=== PATIENT | female | born 1965 | race Caucasian/White ===

== ENCOUNTER → 2016-11-21 | Outpatient (CLI) | payer BC ==
--- NOTE | 2016-11-21 18:36 | WWHP ---
DATE OF DICTATION: 11/21/2016 CHIEF COMPLAINT: The patient is here for her routine gynecologic exam and mammogram. HISTORY OF PRESENT ILLNESS: This is a 51-year-old G0 with an LMP of 11/01/16. The patient is without gynecologic complaints. Her menses are regular every month. She denies hot flashes. PAST MEDICAL HISTORY: Chronic hypertension and mild gastritis. MEDICATIONS: 1. Aldomet b.i.d. 2. Topamax 1 b.i.d. ALLERGIES: AUGMENTIN, which caused hives. 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 SOCIAL HISTORY: She denies tobacco and drug use and has about 6 alcoholic drinks per year. She is and has been with her boyfriend since about 2005. She lives with him. She works at the [employer] in the [employer] in [place]. FAMILY HISTORY: Both parents have hypertension and diabetes. Mother had polycystic ovarian syndrome and now has osteoporosis. REVIEW OF SYSTEMS: She has gained about 12 pounds over the last 3 years. She denies respiratory, cardiac or GI problems. PHYSICAL EXAM: Blood pressure 135/86. Height 5 feet 5 inches. Weight 138 pounds. Temperature 98.6, pulse 61. This is a well-developed, well-nourished white female who is alert and oriented x3, in no acute distress. HEENT is within normal limits. NECK: Supple without mass or thyromegaly. CHEST AND LUNGS: Clear to auscultation. HEART: Regular rate and rhythm. Breasts are without mass or discharge. Axillary exam is negative for adenopathy. BACK: Negative for CVA tenderness. ABDOMEN: Soft, nontender, without palpable masses. PELVIC EXAM: External genitalia reveal mild atrophy without lesions. Cervix and vagina appear normal. There is no evidence of prolapse. The uterus is mid to anterior in position, nongravid size and nontender. There are no palpable adnexal masses or tenderness. Rectovaginal exam is negative for mass or tenderness and is negative for occult blood. EXTREMITIES: Nontender. IMPRESSION: 1. A 51-year-old female with normal gynecologic exam. 2. Pre-menopausal female. PLAN: 1. Pap smear was performed. 2. Self breast examination was discussed. 3. Mammogram will be done today. 4. Screening colonoscopy was recommended, and Dr. Louis's card was given to the patient for this. 5. Osteoporosis prevention was discussed. 6. I have recommended that she keep a menstrual calendar and call if she is having significant problems. 7. She will return in one year.
--- NOTE | 2016-11-22 11:10 | MM ---
Reason for exam: screening (asymptomatic). Last mammogram was performed 2 years and 2 months ago. History: Patient is nulliparous. Physical Findings: A clinical breast exam by your physician is recommended on an annual basis and results should be correlated with mammographic findings. MG 3D Screening Mammo W/Cad Bilateral CC and MLO view(s) were taken. Prior study comparison: September 29, 2014, bilateral MG screening mammo w CAD. September 16, 2013, bilateral digital screening mammo w/CAD. July 23, 2012, bilateral digital screening mammo w/CAD. The breast tissue is extremely dense which could obscure a lesion on mammography. Finding: There are few typically benign round calcifications in both breasts. There is no discrete abnormality. ASSESSMENT: Negative, BI-RAD 1 RECOMMENDATION: Routine screening mammogram of both breasts in 1 year.
== END | disposition home or self-care (01) ==
LOC: WWCWWP 08:42
PROVIDERS: ATTEND Obstetrics & Gynecology
DX: Z12.31 Encounter for screening mammogram for malignant neoplasm of breast (principal)
CPT/HCPCS: 77063; G0202

== ENCOUNTER → 2018-09-10 | Outpatient (CLI) | payer BC ==
[2018-09-10 15:31] VITALS: BP 142/89; PULSE 68; RESP 18; TEMP 97.5; BMI 23.1
--- NOTE | 2018-09-10 16:13 | P.HPOB ---
History of Present Illness H&P Date: 09/10/18 Chief Complaint: The patient is here for her routine gynecologic exam and mammogram. This is a 53-year-old G0 with an LMP of 09/02/2019. The patient thinks she is starting into a menopausal change. Her menstrual periods seem to be shorter, but can spot for a couple of days after the menstrual flow. She also has been experiencing occasional hot flashes which are not very severe. Review of Systems The patient's weight has been stable over the last year. She denies respiratory , cardiac, or G.I. problems. Past Medical History Past Medical History: No Reported History, Hypertension Additional Past Medical History / Comment(s): Mild gastritis. 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 She had a long history of infertility and has declined contraception. History of Any Multi-Drug Resistant Organisms: None Reported Additional Past Surgical History / Comment(s): x2 laparoscopy. Upper endoscopy 2009. Colonoscopy 2018(1st-next 5yrs) Past Anesthesia/Blood Transfusion Reactions: No Reported Reaction Past Psychological History: No Psychological Hx Reported Smoking Status: Never smoker Past Alcohol Use History: Rare (7 per year) Past Drug Use History: None Reported Additional History: She has been since 2018 and this is her 2nd marriage. They have been together since 2006. 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 - Past Family History Father Family Medical History: Hypertension Mother Additional Family Medical History / Comment(s): PCOS and osteoporosis. Medications and Allergies Home Medications Medication Instructions Recorded Confirmed Type Methyldopa [Aldomet] 250 mg PO BID 09/10/18 09/10/18 History Topiramate [Topamax] 25 mg PO DAILY 09/10/18 09/10/18 History Allergies Allergy/AdvReac Type Severity Reaction Status Date / Time amoxicillin [From Augmentin] Allergy Rash/Hives Verified 09/10/18 15:33 clavulanic acid Allergy Rash/Hives Verified 09/10/18 15:33 [From Augmentin] Exam Vital Signs Temp Pulse Resp BP Pulse Ox 09/10/18 15:22 97.5 F L 68 18 142/89 98 Intake and Output 09/10/18 09/10/18 09/10/18 06:59 14:59 22:59 Other: Weight 63.049 kg Height 5'5", weight 139 pounds, BMI 23.1. This is a well-developed well-nourished white female who is alert and oriented times 3 in no acute distress. HEENT: Within normal limits. NECK: Supple without mass or thyromegaly. CHEST AND LUNGS: Clear to auscultation. HEART: Regular rate and rhythm. BREASTS: Are without mass or discharge. AXILLARY EXAM: Negative for adenopathy. BACK: Negative for CVA tenderness. ABDOMEN: Soft, nontender, without palpable masses. PELVIC EXAM: Normal external genitalia. Cervix and vagina appear normal. There is a small amount of menstrual blood in the back of the vagina. There is no unusual discharge. There is no evidence of prolapse. The uterus is midposition , nongravid size and nontender. There are no palpable adnexal masses or tenderness. RECTAL EXAM: rectovaginal exam is negative for mass or tenderness and is negative for occult blood. EXTREMITIES: Nontender. IMPRESSION: 1. 53-year-old perimenopausal female with slight menstrual irregularity and occasional vasomotor symptoms. 2. Normal gynecologic exam. 3. History of infertility, declining any type of contraception. 4. Family history of osteoporosis in her mother. PLAN: 1. Pap smear was deferred since she had a normal one less than 2 years ago. 2. Self breast awareness was discussed with the patient. 3. Screening mammogram will be done today. 4. Osteoporosis prevention was discussed. I have stressed the importance of adequate calcium, vitamin D and regular exercise. Recommended amounts of calcium and vitamin D were also discussed. Due to her mother's history of osteoporosis, we will plan on doing her 1st bone density test at approximately age 56 if she is menopausal. 5. She will return in one year.
--- NOTE | 2018-09-15 12:14 | MM ---
Reason for exam: screening (asymptomatic). Last mammogram was performed 1 year and 10 months ago. History: Patient is nulliparous. MG 3D Screening Mammo W/Cad Bilateral CC and MLO view(s) were taken. Prior study comparison: November 21, 2016, bilateral MG 3d screening mammo w/cad. September 29, 2014, bilateral MG screening mammo w CAD. The breast tissue is extremely dense which could obscure a lesion on mammography. There is a benign-appearing round calcification in the left breast. No discrete abnormality. ASSESSMENT: Negative, BI-RAD 1 RECOMMENDATION: Routine screening mammogram of both breasts in 1 year.
== END ==
LOC: WWCWWP 15:12
PROVIDERS: ATTEND Obstetrics & Gynecology
DX: Z12.31 Encounter for screening mammogram for malignant neoplasm of breast (principal)
CPT/HCPCS: 77063; 77067

== ENCOUNTER 2019-01-29 11:50 | Observation (INO) | payer BC ==
[2019-01-29] MEDS ORDERED: SODIUM CHLORIDE 0.9% 500 ML 500 ML IV STA (12:12)
[2019-01-29] MEDS ORDERED: ASPIRIN 81 MG PO STA (12:12)
--- NOTE | 2019-01-29 12:19 | ED ---
General Adult HPI <Benny Folye - Last Filed: 01/29/19 14:27> - General Source: RN notes reviewed <Mahendra Thacker - Last Filed: 01/29/19 14:34> - General Stated complaint: Chest pressure Time Seen by Provider: 01/29/19 12:03 - History of Present Illness Initial comments: 53-year-old female with a past medical history of hypertension presents to the emergency department for a chief complaint of chest pressure times 2 hours. Patient states she woke up with a slight headache today. States she has a history of migraines. States that about 2 hours later started to have some chest pressure. States she was at work and felt like there was an elephant on her chest. States she did not feel specifically short of breath but felt like she could not take a deep breath. Denies any pleuritic chest pain. Patient denies any radiating pain. Does admit that she traveled about 3 hours away to [place] this weekend. Denies any calf pain. Patient denies hypercholesterolemia but does admit to hypertension for which he takes medication. Patient states her brother after a quadruple bypass before the age of 50.Patient has no other complaints at this time including shortness of breath, abdominal pain, nausea or vomiting, headache, or visual changes. (Mahendra Thacker) - Related Data Home Medications Medication Instructions Recorded Confirmed Methyldopa [Aldomet] 250 mg PO BID 09/10/18 01/29/19 Topiramate [Topamax] 25 mg PO DAILY 09/10/18 01/29/19 Allergies Allergy/AdvReac Type Severity Reaction Status Date / Time amoxicillin [From Augmentin] Allergy Rash/Hives Verified 01/29/19 12:46 clavulanic acid Allergy Rash/Hives Verified 01/29/19 12:46 [From Augmentin] Review of Systems ROS Other: All systems not noted in ROS Statement are negative. <Benny Foley - Last Filed: 01/29/19 14:27> ROS Other: All systems not noted in ROS Statement are negative. <Mahendra Thacker - Last Filed: 01/29/19 14:34> ROS Statement: Those systems with pertinent positive or pertinent negative responses have been documented in the HPI. Past Medical History Past Medical History: No Reported History, Hypertension Additional Past Medical History / Comment(s): Mild gastritis. 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 She had a long history of infertility and has declined contraception. History of Any Multi-Drug Resistant Organisms: None Reported Additional Past Surgical History / Comment(s): x2 laparoscopy. Upper endoscopy 2010. Colonoscopy 2018(1st-next 5yrs) Past Anesthesia/Blood Transfusion Reactions: No Reported Reaction Past Psychological History: No Psychological Hx Reported Smoking Status: Never smoker Past Alcohol Use History: Rare (7 per year) Past Drug Use History: None Reported - Past Family History Father Family Medical History: Hypertension Mother Additional Family Medical History / Comment(s): PCOS and osteoporosis. <Mahendra Thacker - Last Filed: 01/29/19 14:34> General Exam General appearance: alert, in no apparent distress Head exam: Present: atraumatic, normocephalic, normal inspection Eye exam: Present: normal appearance, PERRL, EOMI. Absent: scleral icterus, conjunctival injection, periorbital swelling ENT exam: Present: normal exam, mucous membranes moist Neck exam: Present: normal inspection, full ROM. Absent: tenderness, meningismus, lymphadenopathy Respiratory exam: Present: normal lung sounds bilaterally. Absent: respiratory distress, wheezes, rales, rhonchi, stridor Cardiovascular Exam: Present: regular rate, normal rhythm, normal heart sounds. Absent: systolic murmur, diastolic murmur, rubs, gallop, clicks GI/Abdominal exam: Present: soft, normal bowel sounds. Absent: distended, tenderness, guarding, rebound, rigid Neurological exam: Present: alert, oriented X3, CN II-XII intact Psychiatric exam: Present: normal affect, normal mood <Mahendra Thacker - Last Filed: 01/29/19 14:34> Course <Benny Foley - Last Filed: 01/29/19 14:27> Vital Signs 01/29/19 01/29/19 12:12 12:49 Temperature 98.2 F Pulse Rate 66 Respiratory 18 Rate Blood Pressure 176/123 153/108 O2 Sat by Pulse 98 Oximetry - Reevaluation(s) Reevaluation #1: 01/29/19 14:27 Case was discussed with practitioner Deanna. Case was also discussed with Dr. Dominique who will admit his patient. Chart was reviewed lab and x-ray reports (Benny Foley) EKG Findings - EKG Comments: EKG Findings:: Normal sinus rhythm, ventricular rate 72, MD interval 134, QTc 451, no evidence of ST elevation <Mahendra Thacker - Last Filed: 01/29/19 14:34> Medical Decision Making - Lab Data Result diagrams: 01/29/19 12:36 01/29/19 12:36 <Benny Foley - Last Filed: 01/29/19 14:27> - Lab Data Result diagrams: 01/29/19 12:36 01/29/19 12:36 <Mahendra Thacker - Last Filed: 01/29/19 14:34> - Medical Decision Making 53-year-old female with a past medical history of hypercholesterolemia presents to the emergency department for a chief complaint of chest pressure [address] feels that she can't get a deep breath at times. States it felt like an elephant was on her chest. Patient initially hypertensive here in the emergency department however this did improve throughout her stay. Exam is unremarkable. Patient is pleasant. CBC CMP unremarkable. Troponin is negative at the initial two-hour norma. D-dimer negative. However patient does have a significant family history with a brother due to an [facility] in his 40s. Therefore patient will be admitted for serial troponins and cardiology consultation. (Mahendra Thacker) - Lab Data Lab Results 01/29/19 01/29/19 01/29/19 Range/Units 12:36 12:36 12:36 WBC 6.0 (3.8-10.6) k/uL RBC 4.77 (3.80-5.40) m/uL Hgb 13.5 (11.4-16.0) gm/dL Hct 41.3 (34.0-46.0) % MCV 86.6 (80.0-100.0) fL MCH 28.2 (25.0-35.0) pg MCHC 32.6 (31.0-37.0) g/dL RDW 13.7 (11.5-15.5) % Plt Count 227 (150-450) k/uL Neutrophils % 68 % Lymphocytes % 23 % Monocytes % 5 % Eosinophils % 2 % Basophils % 1 % Neutrophils # 4.1 (1.3-7.7) k/uL Lymphocytes # 1.4 (1.0-4.8) k/uL Monocytes # 0.3 (0-1.0) k/uL Eosinophils # 0.1 (0-0.7) k/uL Basophils # 0.0 (0-0.2) k/uL PT 10.0 (9.0-12.0) sec INR 0.9 (<1.2) APTT 23.9 (22.0-30.0) sec D-Dimer <0.17 (<0.60) mg/L FEU Sodium 139 (137-145) mmol/L Potassium 4.3 (3.5-5.1) mmol/L Chloride 109 H (98-107) mmol/L Carbon Dioxide 23 (22-30) mmol/L Anion Gap 7 mmol/L BUN 14 (7-17) mg/dL Creatinine 0.80 (0.52-1.04) mg/dL Est GFR (CKD-EPI)AfAm >90 (>60 ml/min/1.73 sqM) Est GFR (CKD-EPI)NonAf 85 (>60 ml/min/1.73 sqM) Glucose 96 (74-99) mg/dL Calcium 8.7 (8.4-10.2) mg/dL Magnesium 2.1 (1.6-2.3) mg/dL Total Bilirubin 0.3 (0.2-1.3) mg/dL AST 15 (14-36) U/L ALT 13 (9-52) U/L Alkaline Phosphatase 48 (38-126) U/L Troponin I (0.000-0.034) ng/mL NT-Pro-B Natriuret Pep pg/mL Total Protein 6.7 (6.3-8.2) g/dL Albumin 3.9 (3.5-5.0) g/dL Amylase 67 (30-110) U/L Lipase 142 (23-300) U/L Urine Color Urine Appearance (Clear) Urine pH (5.0-8.0) Ur Specific [place] (1.001-1.035) Urine Protein (Negative) Urine Glucose (UA) (Negative) Urine Ketones (Negative) Urine Blood (Negative) Urine Nitrite (Negative) Urine Bilirubin (Negative) Urine Urobilinogen (<2.0) mg/dL Ur Leukocyte Esterase (Negative) Urine HCG, Qual (Not Detectd) 01/29/19 01/29/19 01/29/19 Range/Units 12:36 12:36 12:36 WBC (3.8-10.6) k/uL RBC (3.80-5.40) m/uL Hgb (11.4-16.0) gm/dL Hct (34.0-46.0) % MCV (80.0-100.0) fL MCH (25.0-35.0) pg MCHC (31.0-37.0) g/dL RDW (11.5-15.5) % Plt Count (150-450) k/uL Neutrophils % % Lymphocytes % % Monocytes % % Eosinophils % % Basophils % % Neutrophils # (1.3-7.7) k/uL Lymphocytes # (1.0-4.8) k/uL Monocytes # (0-1.0) k/uL Eosinophils # (0-0.7) k/uL Basophils # (0-0.2) k/uL PT (9.0-12.0) sec INR (<1.2) APTT (22.0-30.0) sec D-Dimer (<0.60) mg/L FEU Sodium (137-145) mmol/L Potassium (3.5-5.1) mmol/L Chloride (98-107) mmol/L Carbon Dioxide (22-30) mmol/L Anion Gap mmol/L BUN (7-17) mg/dL Creatinine (0.52-1.04) mg/dL Est GFR (CKD-EPI)AfAm (>60 ml/min/1.73 sqM) Est GFR (CKD-EPI)NonAf (>60 ml/min/1.73 sqM) Glucose (74-99) mg/dL Calcium (8.4-10.2) mg/dL Magnesium (1.6-2.3) mg/dL Total Bilirubin (0.2-1.3) mg/dL AST (14-36) U/L ALT (9-52) U/L Alkaline Phosphatase (38-126) U/L Troponin I <0.012 (0.000-0.034) ng/mL NT-Pro-B Natriuret Pep 63 pg/mL Total Protein (6.3-8.2) g/dL Albumin (3.5-5.0) g/dL Amylase (30-110) U/L Lipase (23-300) U/L Urine Color Urine Appearance (Clear) Urine pH (5.0-8.0) Ur Specific [place] (1.001-1.035) Urine Protein (Negative) Urine Glucose (UA) (Negative) Urine Ketones (Negative) Urine Blood (Negative) Urine Nitrite (Negative) Urine Bilirubin (Negative) Urine Urobilinogen (<2.0) mg/dL Ur Leukocyte Esterase (Negative) Urine HCG, Qual Not Detected (Not Detectd) 01/29/19 Range/Units 12:36 WBC (3.8-10.6) k/uL RBC (3.80-5.40) m/uL Hgb (11.4-16.0) gm/dL Hct (34.0-46.0) % MCV (80.0-100.0) fL MCH (25.0-35.0) pg MCHC (31.0-37.0) g/dL RDW (11.5-15.5) % Plt Count (150-450) k/uL Neutrophils % % Lymphocytes % % Monocytes % % Eosinophils % % Basophils % % Neutrophils # (1.3-7.7) k/uL Lymphocytes # (1.0-4.8) k/uL Monocytes # (0-1.0) k/uL Eosinophils # (0-0.7) k/uL Basophils # (0-0.2) k/uL PT (9.0-12.0) sec INR (<1.2) APTT (22.0-30.0) sec D-Dimer (<0.60) mg/L FEU Sodium (137-145) mmol/L Potassium (3.5-5.1) mmol/L Chloride (98-107) mmol/L Carbon Dioxide (22-30) mmol/L Anion Gap mmol/L BUN (7-17) mg/dL Creatinine (0.52-1.04) mg/dL Est GFR (CKD-EPI)AfAm (>60 ml/min/1.73 sqM) Est GFR (CKD-EPI)NonAf (>60 ml/min/1.73 sqM) Glucose (74-99) mg/dL Calcium (8.4-10.2) mg/dL Magnesium (1.6-2.3) mg/dL Total Bilirubin (0.2-1.3) mg/dL AST (14-36) U/L ALT (9-52) U/L Alkaline Phosphatase (38-126) U/L Troponin I (0.000-0.034) ng/mL NT-Pro-B Natriuret Pep pg/mL Total Protein (6.3-8.2) g/dL Albumin (3.5-5.0) g/dL Amylase (30-110) U/L Lipase (23-300) U/L Urine Color Light Yellow Urine Appearance Clear (Clear) Urine pH 6.5 (5.0-8.0) Ur Specific [place] 1.009 (1.001-1.035) Urine Protein Negative (Negative) Urine Glucose (UA) Negative (Negative) Urine Ketones Negative (Negative) Urine Blood Negative (Negative) Urine Nitrite Negative (Negative) Urine Bilirubin Negative (Negative) Urine Urobilinogen <2.0 (<2.0) mg/dL Ur Leukocyte Esterase Negative (Negative) Urine HCG, Qual (Not Detectd) Disposition <Benny Foley - Last Filed: 01/29/19 14:27> Is patient prescribed a controlled substance at d/c from ED?: No Time of Disposition: 14:34 <Mahendra Thacker - Last Filed: 01/29/19 14:34> Clinical Impression: Chest pressure Disposition: ADMITTED IP TO THIS HOSP Condition: Fair Referrals: Duane Dominique DO [Primary Care Provider] - 1-2 days
[2019-01-29 12:54] LABS: Basophils % (A) 1 %; Eosinophils # (A) 0.1 k/uL (0-0.7); Eosinophils % (A) 2 %; HCT 41.3 % (34.0-46.0); HGB 13.5 gm/dL (11.4-16.0); Lymphocytes # (A) 1.4 k/uL (1.0-4.8); Lymphocytes % (A) 23 %; MCH 28.2 pg (25.0-35.0); MCHC 32.6 g/dL (31.0-37.0); MCV 86.6 fL (80.0-100.0); Mean Platelet Volume 7.7; Monocytes # (A) 0.3 k/uL (0-1.0); Monocytes % (A) 5 %; Neutrophils # (A) 4.1 k/uL (1.3-7.7); Neutrophils % (A) 68 %; Platelet Count 227 k/uL (150-450); RBC 4.77 m/uL (3.80-5.40); RDW 13.7 % (11.5-15.5)
[2019-01-29 13:07] LABS: ALT 13 U/L (9-52); AST 15 U/L (14-36); Albumin 3.9 g/dL (3.5-5.0); Alkaline Phosphatase 48 U/L (38-126); Amylase 67 U/L (30-110); Anion Gap 7 mmol/L; Blood Urea Nitrogen 14 mg/dL (7-17); Calcium 8.7 mg/dL (8.4-10.2); Carbon Dioxide 23 mmol/L (22-30); Chloride 109 mmol/L (98-107); D-Dimer <0.17 mg/L FEU (<0.60); Glucose 96 mg/dL (74-99); INR 0.9 (<1.2); Lipase 142 U/L (23-300); Magnesium 2.1 mg/dL (1.6-2.3); Partial Thromboplastin Time 23.9 sec (22.0-30.0); Potassium 4.3 mmol/L (3.5-5.1); Sodium 139 mmol/L (137-145); Total Bilirubin 0.3 mg/dL (0.2-1.3); Total Protein 6.7 g/dL (6.3-8.2)
[2019-01-29 13:42] LABS: Appearance,Urine Clear (Clear); Bilirubin,Urine Negative (Negative); Blood,Urine Negative (Negative); Color,Urine Light Yellow; Glucose,Urine (UA) Negative (Negative); Ketones,Urine Negative (Negative); Leukocyte Esterase,Urine Negative (Negative); Nitrite,Urine Negative (Negative); PH, Urine 6.5 (5.0-8.0); Protein,Urine Negative (Negative); Specific Gravity,Urine 1.009 (1.001-1.035); Urobilinogen,Urine <2.0 mg/dL (<2.0)
--- NOTE | 2019-01-29 13:47 | XR ---
EXAMINATION TYPE: XR chest 2V DATE OF EXAM: 01/29/2019 COMPARISON: None HISTORY: Chest pain TECHNIQUE: Frontal and lateral views of the chest are obtained. FINDINGS: There is no focal air space opacity, pleural effusion, or pneumothorax seen. The cardiac silhouette size is within normal limits. There are overlying cardiac leads. The osseous structures a re intact. IMPRESSION: No acute cardiopulmonary process.
[2019-01-29] MEDS ORDERED: NITROGLYCERIN SL TABS 0.4 MG TAB SUBLINGUAL PRN (14:34)
[2019-01-29] MEDS ORDERED: TOPIRAMATE 25 MG TAB PO SCH (22:15)
[2019-01-29] MEDS ORDERED: METHYLDOPA 250 MG TAB PO SCH (22:15)
[2019-01-29] MEDS: METHYLDOPA 250 MG TAB PO SCH (22:35)
[2019-01-30 05:27] LABS: Cholesterol 164 mg/dL (<200); HDL Cholesterol 58 mg/dL (40-60); LDL Cholesterol,Calculated 95 mg/dL (0-99); Triglycerides 56 mg/dL (<150)
--- NOTE | 2019-01-30 07:34 | P.CRDCN ---
History of Present Illness Consult date: 01/30/19 Chief complaint: Chest pain History of present illness: This is a 53-year-old female patient with a past medical history significant for hypertension and history of migraine seems to be in good control presented to the emergency room complaining of chest discomfort. She was in her usual state of health yesterday when she started experiencing discomfort, in the mid of the chest, as a sharp kind of discomfort, without any radiation to the arm or neck or shoulders and without any associated symptoms of shortness of breath, sweating, dizziness, heart racing, or syncope. The EKG showed sinus rhythm without any ischemic ST or T-wave abnormalities. 3 sets of cardiac enzymes were checked and came in to be unremarkable. The chest x-ray did not show any acute abnormalities. The rest of the blood work including her CBC and BMP came in to be unremarkable. The d-dimer came in to be normal as well. The patient does not have any risk factors for CAD beside hypertension but she does have very significant family history of coronary artery disease with a brother in the 40s with CAD as well as mother. Past Medical History Past Medical History: Hypertension Additional Past Medical History / Comment(s): Mild gastritis, migraines History of Any Multi-Drug Resistant Organisms: None Reported Additional Past Surgical History / Comment(s): x2 laparoscopy. Upper endoscopy 2009. Colonoscopy 2018(1st-next 5yrs). lyn Past Anesthesia/Blood Transfusion Reactions: Postoperative Nausea & Vomiting (PONV) Past Psychological History: No Psychological Hx Reported Smoking Status: Never smoker Past Alcohol Use History: Rare Past Drug Use History: None Reported - Past Family History Father Family Medical History: Coronary Artery Disease (CAD), Hypertension Additional Family Medical History / Comment(s): passed from cardiac related issue Mother Family Medical History: Diabetes Mellitus Additional Family Medical History / Comment(s): PCOS and osteoporosis., MVP, aor tic stenosis Brother(s) Family Medical History: Diabetes Mellitus, Hypertension, Myocardial Infarction ([place]) Sister(s) Family Medical History: CVA/TIA Additional Family Medical History / Comment(s): possible TIA Medications and Allergies Home Medications Medication Instructions Recorded Confirmed Type Methyldopa [Aldomet] 250 mg PO BID 09/10/18 01/29/19 History Topiramate [Topamax] 25 mg PO DAILY 09/10/18 01/29/19 History Allergies Allergy/AdvReac Type Severity Reaction Status Date / Time amoxicillin [From Augmentin] Allergy Rash/Hives Verified 01/29/19 20:32 clavulanic acid Allergy Rash/Hives Verified 01/29/19 20:32 [From Augmentin] Physical Exam Vitals: Vital Signs Temp Pulse Pulse Pulse Resp BP BP 01/30/19 04:00 98.0 F 67 15 132/78 01/30/19 03:02 16 01/30/19 00:00 98.3 F 63 16 130/84 01/29/19 20:00 16 01/29/19 19:45 98.3 F 73 16 140/82 01/29/19 16:20 75 129/84 01/29/19 16:10 72 127/86 01/29/19 16:00 128/95 01/29/19 15:20 66 126/76 01/29/19 15:10 64 18 135/90 01/29/19 14:50 65 17 137/84 01/29/19 14:46 66 18 137/84 01/29/19 14:40 66 18 143/96 01/29/19 14:20 67 18 145/92 01/29/19 14:10 73 17 136/92 01/29/19 13:50 62 19 158/97 01/29/19 13:20 61 16 148/93 01/29/19 13:10 61 18 156/92 01/29/19 13:00 66 19 147/94 01/29/19 12:49 153/108 01/29/19 12:12 98.2 F 66 18 176/123 Pulse Ox 01/30/19 04:00 98 01/30/19 03:02 01/30/19 00:00 97 01/29/19 20:00 01/29/19 19:45 98 01/29/19 16:20 97 01/29/19 16:10 96 01/29/19 16:00 96 01/29/19 15:20 97 01/29/19 15:10 97 01/29/19 14:50 98 01/29/19 14:46 98 01/29/19 14:40 99 01/29/19 14:20 98 01/29/19 14:10 98 01/29/19 13:50 100 01/29/19 13:20 98 01/29/19 13:10 98 01/29/19 13:00 97 01/29/19 12:49 01/29/19 12:12 98 Intake and Output 01/29/19 01/30/19 01/30/19 22:59 06:59 14:59 Other: Voiding Method Toilet Toilet # Voids 1 - Constitutional General appearance: no acute distress - Respiratory Respiratory: bilateral: CTA - Cardiovascular Rhythm: regular Heart sounds: normal: S1, S2 Results 01/29/19 12:36 01/29/19 12:36 Cardiac Enzymes 01/29/19 01/29/19 01/29/19 Range/Units 12:36 12:36 18:13 AST 15 (14-36) U/L Troponin I <0.012 <0.012 (0.000-0.034) ng/mL 01/30/19 Range/Units 00:19 AST (14-36) U/L Troponin I <0.012 (0.000-0.034) ng/mL Coagulation 01/29/19 Range/Units 12:36 PT 10.0 (9.0-12.0) sec APTT 23.9 (22.0-30.0) sec Lipids 01/29/19 Range/Units 12:36 Triglycerides 56 (<150) mg/dL Cholesterol 164 (<200) mg/dL HDL Cholesterol 58 (40-60) mg/dL CBC 01/29/19 Range/Units 12:36 WBC 6.0 (3.8-10.6) k/uL RBC 4.77 (3.80-5.40) m/uL Hgb 13.5 (11.4-16.0) gm/dL Hct 41.3 (34.0-46.0) % Plt Count 227 (150-450) k/uL Comprehensive Metabolic Panel 01/29/19 Range/Units 12:36 Sodium 139 (137-145) mmol/L Potassium 4.3 (3.5-5.1) mmol/L Chloride 109 H (98-107) mmol/L Carbon Dioxide 23 (22-30) mmol/L BUN 14 (7-17) mg/dL Creatinine 0.80 (0.52-1.04) mg/dL Glucose 96 (74-99) mg/dL Calcium 8.7 (8.4-10.2) mg/dL AST 15 (14-36) U/L ALT 13 (9-52) U/L Alkaline Phosphatase 48 (38-126) U/L Total Protein 6.7 (6.3-8.2) g/dL Albumin 3.9 (3.5-5.0) g/dL Current Medications Generic Name Dose Route Start Last Admin Trade Name Freq PRN Reason Stop Dose Admin Aspirin 325 mg 01/30/19 09:00 Aspirin PO DAILY JUNIOR Nitroglycerin 0.4 mg 01/29/19 14:34 Nitrostat SUBLINGUAL Q5M PRN Chest Pain Methyldopa 250 Mg 1 each 01/29/19 22:30 01/29/19 22:35 Tab PO Not Given BID JUNIOR Topiramate 25 mg 01/29/19 22:15 01/29/19 22:34 Topamax PO 25 mg HS JUNIOR Administration Intake and Output 01/29/19 01/30/19 01/30/19 22:59 06:59 14:59 Other: Voiding Method Toilet Toilet # Voids 1 01/29/19 12:36 01/29/19 12:36 Assessment and Plan Assessment: Assessment #1 atypical chest discomfort #2 hypertension #3 history of migraine Plan The patient was ruled out for acute coronary event Giving her significant family history, I did recommend proceeding with a stress test. We'll continue following up with the patient.
[2019-01-30] MEDS: METHYLDOPA 250 MG TAB PO SCH (07:42)
[2019-01-30 08:13] VITALS: RESP 16
[2019-01-30] MEDS ORDERED: METHYLDOPA 250 MG TAB PO SCH (09:00)
[2019-01-30] MEDS ORDERED: ASPIRIN 325 MG TAB PO SCH (09:00)
[2019-01-30] MEDS ORDERED: TOPIRAMATE 25 MG TAB PO SCH (09:00)
[2019-01-30] MEDS ORDERED: PANTOPRAZOLE 40 MG/10 ML VIAL IVP SCH (09:30)
--- NOTE | 2019-01-30 10:11 | P.HPIM ---
History of Present Illness H&P Date: 01/30/19 Chief Complaint: Chest pain This is a 53-year-old female with history of hypertension, gastroesophageal reflux disease, migraines, family history of CAD- brother and mother, presented to the ER with midsternal chest pressure, lasting for greater than 2 hours, not reproducible. Patient states the night before, she developed a backache, followed by nonmigraine headache earlier this morning. Ate breakfast, proceeded to work, midsternal chest pressure worsened, felt like a "baby elephant " on her chest, intensified by attempting to deep breathe, nonradiating. Denies nausea vomiting, abdominal pain, lightheadedness or focal deficits. Denies palpitations. Denies shortness of breath .Patient has been under increased stress with 's recent diagnosis of prostate cancer .EKG reported normal sinus rhythm. Troponins negative 3. D-dimer WNL. Hypertensive initially on admission, BP 176/123, improved. CBC, CMP unremarkable. Chest x-ray nonacute. Cardiology consulted. Review of Systems ROS Statement: Those systems with pertinent positive or pertinent negative responses have been documented in the HPI. ROS Other: All systems not noted in ROS Statement are negative. Past Medical History Past Medical History: Hypertension Additional Past Medical History / Comment(s): Mild gastritis, migraines History of Any Multi-Drug Resistant Organisms: None Reported Additional Past Surgical History / Comment(s): x2 laparoscopy. Upper endoscopy 2009. Colonoscopy 2018(1st-next 5yrs). lyn Past Anesthesia/Blood Transfusion Reactions: Postoperative Nausea & Vomiting (PONV) Past Psychological History: No Psychological Hx Reported Smoking Status: Never smoker Past Alcohol Use History: Rare Past Drug Use History: None Reported - Past Family History Father Family Medical History: Coronary Artery Disease (CAD), Hypertension Additional Family Medical History / Comment(s): passed from cardiac related issue Mother Family Medical History: Diabetes Mellitus Additional Family Medical History / Comment(s): PCOS and osteoporosis., MVP, aortic stenosis Brother(s) Family Medical History: Diabetes Mellitus, Hypertension, Myocardial Infarction ([place]) Sister(s) Family Medical History: CVA/TIA Additional Family Medical History / Comment(s): possible TIA Medications and Allergies Home Medications Medication Instructions Recorded Confirmed Type Methyldopa [Aldomet] 250 mg PO BID 09/10/18 01/29/19 History Topiramate [Topamax] 25 mg PO DAILY 09/10/18 01/29/19 History Allergies Allergy/AdvReac Type Severity Reaction Status Date / Time amoxicillin [From Augmentin] Allergy Rash/Hives Verified 01/29/19 20:32 clavulanic acid Allergy Rash/Hives Verified 01/29/19 20:32 [From Augmentin] Physical Exam Vitals: Vital Signs Temp Pulse Pulse Pulse Pulse Resp BP 01/30/19 08:00 98.3 F 70 16 01/30/19 04:00 98.0 F 67 15 01/30/19 03:02 16 01/30/19 00:00 98.3 F 63 16 01/29/19 20:00 16 01/29/19 19:45 98.3 F 73 16 01/29/19 16:20 75 129/84 01/29/19 16:10 72 127/86 01/29/19 16:00 128/95 01/29/19 15:20 66 126/76 01/29/19 15:10 64 18 135/90 01/29/19 14:50 65 17 137/84 01/29/19 14:46 66 18 137/84 01/29/19 14:40 66 18 143/96 01/29/19 14:20 67 18 145/92 01/29/19 14:10 73 17 136/92 01/29/19 13:50 62 19 158/97 01/29/19 13:20 61 16 148/93 01/29/19 13:10 61 18 156/92 01/29/19 13:00 66 19 147/94 01/29/19 12:49 153/108 01/29/19 12:12 98.2 F 66 18 176/123 BP BP Pulse Ox 01/30/19 08:00 146/82 97 01/30/19 04:00 132/78 98 01/30/19 03:02 01/30/19 00:00 130/84 97 01/29/19 20:00 01/29/19 19:45 140/82 98 01/29/19 16:20 97 01/29/19 16:10 96 01/29/19 16:00 96 01/29/19 15:20 97 01/29/19 15:10 97 01/29/19 14:50 98 01/29/19 14:46 98 01/29/19 14:40 99 01/29/19 14:20 98 01/29/19 14:10 98 01/29/19 13:50 100 01/29/19 13:20 98 01/29/19 13:10 98 01/29/19 13:00 97 01/29/19 12:49 01/29/19 12:12 98 Intake and Output 01/29/19 01/30/19 01/30/19 22:59 06:59 14:59 Other: Voiding Method Toilet Toilet # Voids 1 PHYSICAL EXAM: VITAL SIGNS: As above GENERAL: Sitting up in bed, no acute distress HEENT: Conjunctivae normal. eyes normal. Oral mucosa is dry NECK: No JVD. No thyroid enlargement. No LNs CARDIOVASCULAR: S1, S2 regular. No murmur RESPIRATION: Breath sounds diminished in the bases. No rhonchi or crackles. No bronchial breathing. ABDOMEN: Soft, nontender . No guarding. no masses palpable. Bowel sounds heard. LEGS: No edema. no swelling PSYCHIATRY: Alert and oriented -3, mood and affect normal. NERVOUS SYSTEM: Cranial N 2-12 grossly normal. Moves all 4 limbs. No focal deficits. No sensory deficit. Skin: no lesions,no rash Joints: No active swelling. No inflammation. Lymphatic system. No LN neck axilla or groin. Results CBC & Chem 7: 01/29/19 12:36 01/29/19 12:36 Labs: Abnormal Lab Results - Last 24 Hours (Table) 01/29/19 Range/Units 12:36 Chloride 109 H (98-107) mmol/L Thrombosis Risk Factor Assmnt - Choose All That Apply Any of the Below Risk Factors Present?: Yes Each Factor Represents 1 point: Age 41-60 years Other Risk Factors: No Other congenital or acquired thrombophilia - If yes, enter type in comment: No Thrombosis Risk Factor Assessment Total Risk Factor Score: 1 Thrombosis Risk Factor Assessment Level: Low Risk Assessment and Plan Assessment: -Atypical chest pressure -Hypertension -Gastroesophageal reflux disease -History of migraines Plan: Continue on current medication regime ,monitoring and symptomatic tr eatment. Evaluated by cardiology and patient is scheduled for stress test today. PPI for GI prophylaxis added to med regime. Home meds have been reviewed and resumed.further recommendations to follow .discharge planning in progress pending stress test results/cardiac clearance . The impres 70 REVIEWED AND RESUMED mariluz and plan of care has been dictated as directed. : I performed a history and examination of this patient, discussed the same with the dictator. I agree with the dictator's note ,documented as a scribe. Any additional findings or plans will be noted.
[2019-01-30 11:30] VITALS: BP 127/85; TEMP 97.9
[2019-01-30 12:38] VITALS: PULSE 73
--- NOTE | 2019-01-30 14:36 | P.DS ---
Providers Date of admission: 01/29/19 14:39 Expected date of discharge: 01/30/19 Attending physician: Duane Dominique Consults: 01/29/19 14:34 Consult Physician Routine Consulting Provider: [facility] Consult Reason/Comments: chest pressure x 2 hours, strong Fam Hx Do you want consulting provider notified?: Yes Primary care physician: Duane Dominique [facility] Course: Final Diagnoses: -Atypical chest pressure, acute coronary event ruled out per cardiology; scheduled for stress test secondary to significant family history -Hypertension -Gastroesophageal reflux disease -History of migraines Hospital course:This is a 53-year-old female with history of hypertension, gastroesophageal reflux disease, migraines, family history of CAD- brother and mother, presented to the ER with midsternal chest pressure, lasting for greater than 2 hours, not reproducible. Patient states the night before, she developed a backache, followed by nonmigraine headache earlier this morning. Ate breakfast, proceeded to work, midsternal chest pressure worsened, felt like a "baby elephant " on her chest, intensified by attempting to deep breathe, nonradiating. Denies nausea vomiting, abdominal pain, lightheadedness or focal deficits. Denies palpitations. Denies shortness of breath .Patient has been under increased stress with 's recent diagnosis of prostate cancer .EKG reported normal sinus rhythm. Troponins negative 3. D-dimer WNL. Hypertensive initially on admission, BP 176/123, improved. CBC, CMP unremarkable. Chest x- ray nonacute. Cardiology consulted. Evaluated by Cardiology and scheduled for stress test. Patient will be discharged home pending stress test results/cardiology clearance in a stable condition with guarded prognosis. EXAM: GENERAL: Alert and oriented 3, no acute distress CARDIOVASCULAR: S1, S2 regular. No murmur RESPIRATION: Breath sounds diminished in the bases. No rhonchi or crackles. No wheezing. ABDOMEN: Soft, nontender . No guarding. no masses palpable. Bowel sounds heard. NERVOUS SYSTEM: No focal deficits. The impression and plan of care has been dictated as directed. : I performed a history and examination of this patient, discussed the same with the dictator. I agree with the dictator's note ,documented as a scribe. Any additional findings or plans will be noted. Time taken: 35 minutes Patient Condition at Discharge: Stable Plan - Discharge Summary Discharge Rx Participant: No New Discharge Prescriptions: New Omeprazole [PriLOSEC] 20 mg PO AC-BID #60 cap Continue Methyldopa [Aldomet] 250 mg PO BID Topiramate [Topamax] 25 mg PO DAILY Discharge Medication List Methyldopa [Aldomet] 250 mg PO BID 09/10/18 [History] Topiramate [Topamax] 25 mg PO DAILY 09/10/18 [History] Omeprazole [PriLOSEC] 20 mg PO AC-BID #60 cap 01/30/19 [Rx] Follow up Appointment(s)/Referral(s): Duane Dominique DO [Primary Care Provider] - 1 Week Activity/Diet/Wound Care/Special Instructions: 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
--- NOTE | 2019-01-31 14:10 | ECHOF ---
Referral Reason: MEASUREMENTS -------- HEIGHT: 165.1 cm WEIGHT: 62.6 kg BP: 132/78 IVSd: 1.5 cm (0.6 - 1.1) LVIDd: 2.8 cm (3.9 - 5.3) LVPWd: 1.4 cm (0.6 - 1.1) IVSs: 1.5 cm LVIDs: 2.1 cm LVPWs: 1.5 cm LAESV Index (A-L): 13.80 ml/m AV Cusp: 1.7 cm (1.5 - 2.6) LA Diam: 2.9 cm (2.7 - 3.8) MV EXCURSION: 10.629 mm (> 18.000) MV EF SLOPE: 47 mm/s (70 - 150) EPSS: 0.4 cm MV E Valerio: 0.61 m/s MV DecT: 243 ms MV A Valerio: 0.82 m/s MV E/A Ratio: 0.74 RAP: 5.00 mmHg RVSP: 21.00 mmHg FINDINGS -------- Sinus rhythm. This was a technically adequate study. The left ventricular size is normal. There is moderate concentric left ventricular hypertrophy. O verall left ventricular systolic function is normal with, an EF between 60 - 65 %. The right ventricle is normal in size. Normal LA size by volume 22+/-6 ml/m2. The right atrial size is normal. Interatrial and interventricular septum intact. The aortic valve is trileaflet and appears structurally normal. Mild mitral annular calcification present. There is trace mitral regurgitation. Mild tricuspid regurgitation present. There is no evidence of pulmonary hypertension. The right v entricular systolic pressure, as measured by Doppler, is 21.00mmHg. There is no pulmonic regurgitation present. The aortic root is mildy dilated. Normal inferior vena cava with normal inspiratory collapse consistent with estimated right atrial pre ssure of 5 mmHg. There is no pericardial effusion. CONCLUSIONS -------- 1. Sinus rhythm. 2. This was a technically adequate study. 3. The left ventricular size is normal. 4. There is moderate concentric left ventricular hypertrophy. 5. Overall left ventricular systolic function is normal with, an EF between 60 - 65 %. 6. The right ventricle is normal in size. 7. Normal LA size by volume 22+/-6 ml/m2. 8. The right atrial size is normal. 9. Interatrial and interventricular septum intact. 10. The aortic valve is trileaflet and appears structurally normal. 11. Mild mitral annular calcification present. 12. There is trace mitral regurgitation. 13. Mild tricuspid regurgitation present. 14. There is no evidence of pulmonary hypertension. 15. The right ventricular systolic pressure, as measured by Doppler, is 21.00mmHg. 16. There is no pulmonic regurgitation present. 17. The aortic root is mildy dilated. 18. Normal inferior vena cava with normal inspiratory collapse consistent with estimated right atrial pressure of 5 mmHg. 19. There is no pericardial effusion. STAIN SPRAYER: Lois Thrasher RDCS
--- NOTE | 2019-01-31 14:42 | EST ---
EXERCISE STRESS DATE OF SERVICE: 01/30/2019 AGE: 53 SEX: Female HT: 65 WT: 138 pounds PROTOCOL: Clifford STAGE: III DURATION OF EXERCISE: 7 minutes HEART RATE REST: 82 BLOOD PRESSURE REST: 144/107 MAXIMUM HEART RATE ACHIEVED: 156 MAXIMUM BLOOD PRESSURE: 197/78 85% MPHR: 143 100% MPHR: 168 METS: 9.1 INDICATIONS: Chest pain. CLINICAL INFORMATION: STRESS DATA: Pretesting physical examination showed a heart rate of 82, pressure is 144/107 mmHg. Baseline EKG showed sinus mechanism. The patient exercised on the treadmill according to Clifford protocol for a total of 7 minutes and achieved 9.1 METs. Max heart rate was 156, which is about 93% of maximum predicted heart rate. Maximum blood pressure was 197/78 mmHg. Clinically the patient did not have any symptoms of chest pain or discomfort and the EKG did not show any significant ST or T-wave abnormalities concerning for ischemia. CONCLUSION: 1. Good exercise tolerance. 2. Normal EKG in response to exercise. 3. Essentially normal stress test for the patient. MMODL / IJN: [id number] /
== END 2019-01-30 14:35 | disposition home or self-care (01) ==
LOC: EC 11:50 → 1SOBS 14:39
PROVIDERS: ADMIT Family Medicine; ATTEND Family Medicine
DX: R07.89 Other chest pain (principal); I10 Essential (primary) hypertension; K21.9 Gastro-esophageal reflux disease without esophagitis; G43.909 Migraine, unspecified, not intractable, without status migrainosus; E78.00 Pure hypercholesterolemia, unspecified; N97.9 Female infertility, unspecified; Z79.899 Other long term (current) drug therapy; Z88.0 Allergy status to penicillin; Z88.8 Allergy status to other drugs, medicaments and biological substances; Z87.19 Personal history of other diseases of the digestive system; Z82.49 Family history of ischemic heart disease and other diseases of the circulatory system; Z82.62 Family history of osteoporosis; Z84.2 Family history of other diseases of the genitourinary system; Z83.3 Family history of diabetes mellitus; Z82.3 Family history of stroke
CPT/HCPCS: 96374; 96361; 99285; 36415; 93005; 93017; 93306; 85379; 83880; 80061; 80053; 82150; 83690; 83735; 84484 ×2; 85025; 85610; 85730; 81003; 81025; 71046; G0378 ×2; C9113

== ENCOUNTER → 2020-10-05 | Outpatient (CLI) | payer BC ==
[2020-10-05 12:54] VITALS: BP 122/84; PULSE 85; RESP 18; TEMP 98.7
--- NOTE | 2020-10-05 13:37 | P.HPOB ---
History of Present Illness H&P Date: 10/05/20 Chief Complaint: The patient is here for her routine gynecologic exam and ma mmogram. This is a 55-year-old G0 with an LMP of July 2020. The patient states her menstrual periods have become less frequent about every 2-3 months. She has been having hot flashes and briefly used [id number] estrogen which did seem to help somewhat with the hot flashes. She is otherwise without complaints. Her PCP recommended getting a bone density test done. Her mother did have osteoporosis. Review of Systems The patient has gained 8 pounds over the last year. She denies respiratory, cardiac, or G.I. problems. Past Medical History Past Medical History: Hypertension Additional Past Medical History / Comment(s): Mild gastritis, migraines. 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 She has a history of infertility. History of Any Multi-Drug Resistant Organisms: None Reported Additional Past Surgical History / Comment(s): x2 laparoscopy. Upper endoscopy 2009. Colonoscopy 2018(1st-next 5yrs). lasik. Benign skin biopsies. Past Anesthesia/Blood Transfusion Reactions: Postoperative Nausea & Vomiting (PONV) Past Psychological History: No Psychological Hx Reported Smoking Status: Never smoker Past Alcohol Use History: Rare (6 per Year) Past Drug Use History: None Reported Additional History: She has been since 2017 and this is her second marriage. Her was diagnosed with prostate cancer. She works at the [employer] and plans to retire in 2022. - Past Family History Father Family Medical History: Coronary Artery Disease (CAD), Hypertension Additional Family Medical History / Comment(s): passed from cardiac related issue Mother Family Medical History: Diabetes Mellitus Additional Family Medical History / Comment(s): PCOS and osteoporosis., MVP, aortic stenosis Brother(s) Family Medical History: Diabetes Mellitus, Hypertension, Myocardial Infarction ([place]) Sister(s) Family Medical History: CVA/TIA Additional Family Medical History / Comment(s): possible TIA Medications and Allergies Home Medications Medication Instructions Recorded Confirmed Type Topiramate [Topamax] 25 mg PO DAILY 09/10/18 10/05/20 History Irbesartan [Avapro] 150 mg PO HS 10/05/20 10/05/20 History Allergies Allergy/AdvReac Type Severity Reaction Status Date / Time amoxicillin [From Augmentin] Allergy Rash/Hives Verified 10/05/20 12:49 clavulanic acid Allergy Rash/Hives Verified 10/05/20 12:49 [From Augmentin] Exam Vital Signs Temp Pulse Resp BP Pulse Ox 10/05/20 12:49 98.7 F 85 18 122/84 98 Intake and Output 10/04/20 10/05/20 10/05/20 22:59 06:59 14:59 Other: Weight 66.678 kg Height 5 feet 5 inches, weight 147 pounds, BMI 24.5. This is a well-developed well-nourished white female who is alert and oriented times 3 in no acute distress. HEENT: Within normal limits. NECK: Supple without mass or thyromegaly. CHEST AND LUNGS: Clear to auscultation. HEART: Regular rate and rhythm. BREASTS: Are without mass or discharge. AXILLARY EXAM: Negative for adenopathy. BACK: Negative for CVA tenderness. ABDOMEN: Soft, nontender, without palpable masses. PELVIC EXAM: Normal external genitalia with minimal atrophy. Cervix and vagina appear normal with minimal atrophy. There is no unusual discharge. There is no evidence of prolapse. The uterus is midposition, nongravid size and nontender. There are no palpable adnexal masses or tenderness. RECTAL EXAM: Rectovaginal exam is negative for mass or tenderness and is negative for occult blood. EXTREMITIES: Nontender. IMPRESSION: 1. 55-year-old perimenopausal female with oligomenorrhea and vasomotor symptoms. 2. Family history of osteoporosis in her mother. PLAN: 1. Pap smear cotest was performed. 2. Self breast awareness was discussed with the patient. 3. Screening mammogram will be done today. 4. Osteoporosis prevention was discussed. I have stressed the importance of adequate calcium, vitamin D and regular exercise. Recommended amounts of calcium and vitamin D were also discussed. Bone density testing will be done today as recommended by her PCP. 5. She has received the first of 2 COVID vaccinations. 6. Home blood pressure cuff is being offered by her insurance company with a doctor's order. I do think it would be liu for her to monitor her own blood pressure because of her history of chronic hypertension on medication and I have filled out the order slip for the patient. 7 we have discussed her hot flashes. I have recommended having cold icewater available at all times for when she does feel a hot flash coming on. I also recommend dressing in layers. We have discussed various options including [id number] supplements, hormonal medications as well as nonhormonal prescription medications. She will discussed possible use of clonidine which could be used to treat hypertension and can also help with hot flashes. She will discuss this medication with her PCP to see if this would be appropriate for her. 8. She was advised to return in one year for her annual well woman exam.
--- NOTE | 2020-10-05 15:05 | BD ---
EXAMINATION TYPE: Axial Bone Density DATE OF EXAM: 10/05/2020 COMPARISON: NONE CLINICAL HISTORY: Height: 65 IN Weight: 145 LBS RISK FACTORS HISTORY OF: Family History of Osteoporosis: MOTHER Active: YES If Premenopausal, do you have irregular periods: YES MEDICATIONS: Additional Medications: TOPAMAX, BLOOD PRESSURE MEDS EXAM MEASUREMENTS: Bone mineral densitometry was performed using the X-IO System. Bone mineral density as measured about the Lumbar spine is: ----- L1-L4(G/cm2): 1.276 T Score Values are as follows: ----- L2: 0.9 ----- L3: 1.4 ----- L4: 0.2 ----- L1-L4: 0.8 Bone mineral density BASELINE Bone mineral density about the R hip (g/cm2): 0.832 Bone mineral density about the L hip (g/cm2): 0.797 T Score values are as follows: -----R Neck: -1.5 -----L Neck: -1.7 -----R Total: 0.1 -----L Total: 0.0 Bone mineral density BASELINE IMPRESSION: No evidence for osteoporosis or osteopenia. NOTE: T-SCORE=SD OF THE YOUNG ADULT MEAN.
--- NOTE | 2020-10-08 13:10 | MM ---
Reason for exam: screening (asymptomatic). Last mammogram was performed 2 years and 1 month ago. History: Patient is nulliparous. Physical Findings: A clinical breast exam by your physician is recommended on an annual basis and results should be correlated with mammographic findings. MG 3D Screening Mammo W/Cad Bilateral CC and MLO view(s) were taken. Prior study comparison: September 10, 2018, bilateral MG 3d screening mammo w/cad. November 21, 2016, bilateral MG 3d screening mammo w/cad. The breast tissue is extremely dense which could obscure a lesion on mammography. No significant changes when compared with prior studies. ASSESSMENT: Benign, BI-RAD 2 RECOMMENDATION: Routine screening mammogram of both breasts in 1 year.
== END | disposition home or self-care (01) ==
LOC: WWCWWP 12:10
PROVIDERS: ATTEND Obstetrics & Gynecology
DX: Z12.31 Encounter for screening mammogram for malignant neoplasm of breast (principal); Z78.0 Asymptomatic menopausal state
CPT/HCPCS: 77063; 77067; 77080

== ENCOUNTER → 2022-07-19 | Outpatient (CLI) | payer BC ==
[2022-07-19 08:32] VITALS: BP 129/83; PULSE 66; RESP 17; TEMP 98
--- NOTE | 2022-07-19 09:11 | P.PN ---
Progress Note - Text Progress Note Date: 07/19/22 Chief Complaint: Left pelvic pains about 2 weeks ago. HPI: This is a 56-year-old G0 with an LMP of October 2020. The patient developed brief left pelvic pain about 2 weeks ago. It came on suddenly and lasted for a few seconds and was rated 4 out of 10. She describes it as a sharp pain. A reminded her of pains that she would have before menstrual periods when she was having menstrual periods. It occurred again 1-2 days later and woke her from sleep. This episode lasted for a few minutes and was rated as 7 out of 10. She had 2 brief episodes that night and has not had any pain since then. She denies any post menopausal vaginal bleeding. She denies fever or vaginal discharge. She has not been sexually active for quite some time due to her 's medical issues. She denies any unusual activity prior to these episodes. ROS: She denies urinary symptoms. GI: She denies nausea vomiting diarrhea or constipation or any other GI problems. She denies respiratory or cardiac problems. PE: Blood pressure: 129/83, Height: Feet 5-1/2 inches, Weight: 201 pounds, Temperature: 98.0, Pulse: 66. Pulse oximeter 100%. This is a well developed, well nourished, white female who is alert and orientedx3, in no acute distress. Abdomen: Soft and nontender without palpable masses. Bimanual examination: There is no cervical motion tenderness. The uterus is mid positioned, nongravid size, and nontender. There are no palpable adnexal masses or tenderness. Impression: 1. 56-year-old menopausal female with brief episodes of left pelvic pain about 2 weeks ago. Differential diagnosis will include ovarian cyst, other ovarian neoplasm, hydrosalpinx, uterine fibroid as well as possible non-gynecologic causes such as diverticulosis/diverticulitis or hernia. Plan: 1. I have recommended pelvic ultrasound. The order slip was given to the patient for this. 2. The patient will call she's having worsening symptoms or problems. 3. We have had a long discussion regarding menopausal changes and possible causes for the pains. 4. She states she has a screening colonoscopy coming up in the next couple of months. 5. She will also follow-up in December 2022 for her annual exam and sooner if needed. Time spent with the patient: 20 minutes
== END | disposition home or self-care (01) ==
LOC: WWCWWP 08:13
PROVIDERS: ATTEND Obstetrics & Gynecology
DX: Z53.9 Procedure and treatment not carried out, unspecified reason (principal)

== ENCOUNTER → 2022-07-24 | Outpatient (CLI) | payer BC ==
--- NOTE | 2022-07-25 10:32 | US ---
EXAMINATION TYPE: US pelvic complete DATE OF EXAM: 07/24/2022 COMPARISON: NONE CLINICAL HISTORY: 56-year-old female R10.2 PELVIC PAIN. TECHNIQUE: Transabdominal (TA Date of LMP: 1 year prior FINDINGS: EXAM MEASUREMENTS: Uterus: 6.1 x 2.8 x 4.2 cm Endometrial Stripe: 0.2 cm Right Ovary: 1.1 x 0.8 x 0.8 cm Left Ovary: 1.3 x 0.7 x 0.9 cm 1. Uterus: Anteverted and otherwise wnl 2. Endometrium: wnl 3. Right Ovary: wnl 4. Left Ovary: wnl 5. Bilateral Adnexa: extensive overlying peristalsing bowel on right 6. Posterior cul-de-sac: wnl IMPRESSION: Unremarkable transabdominal sonographic examination of the pelvis.
--- NOTE | 2022-07-25 11:57 | P.PN ---
Progress Note - Text Progress Note Date: 07/25/22 OUTPATIENT FOLLOW-UP NOTE TEST(S)/RESULTS: Pelvic ultrasound done on 07/24/2022 was unremarkable. METHOD OF NOTIFICATION: SH with this result was left on the patient's voicemail. PATIENT COMMENTS: DIAGNOSIS: Unremarkable pelvic ultrasound. DISCUSSION: On the voicemail, the patient was instructed to call if she is having worsening symptoms, questions or problems. PLAN: She will return for her well woman exam in December 2022.
== END | disposition home or self-care (01) ==
LOC: RADUSWWP 16:14
PROVIDERS: ATTEND Obstetrics & Gynecology
DX: R10.2 Pelvic and perineal pain (principal)
CPT/HCPCS: 76856

== ENCOUNTER → 2022-12-12 | Outpatient (CLI) | payer BC ==
[2022-12-12 11:11] VITALS: BP 124/83; PULSE 66; RESP 17; TEMP 97.9
--- NOTE | 2022-12-12 11:47 | P.HPOB ---
History of Present Illness H&P Date: 12/12/22 Chief Complaint: The patient is here for her routine gynecologic exam and ma mmogram. This is a 57-year-old G0 with an LMP of 10/06/2020. She does have occasional mild hot flashes which are not very severe. She did have one more severe hot flash last week, but these are rare. She is otherwise without complaints and denies any postmenopausal bleeding. Review of Systems She has gained about 9 pounds over the past year. She denies respiratory or cardiac problems. GI: Occasional gastric reflux when she overeats. Past Medical History Past Medical History: Hypertension Additional Past Medical History / Comment(s): Mild gastritis, migraines. PAST [employer] HISTORY: She has no history of STDs. She has a history of infertility. History of Any Multi-Drug Resistant Organisms: None Reported Additional Past Surgical History / Comment(s): x2 laparoscopy. Upper endoscopy 2009. Colonoscopy 2018(1st-next 5yrs). lasik. Benign skin biopsies. Past Anesthesia/Blood Transfusion Reactions: Postoperative Nausea & Vomiting (PONV) Past Psychological History: No Psychological Hx Reported Smoking Status: Never smoker Past Alcohol Use History: Occasional (12 per year) Past Drug Use History: None Reported Additional History: She has been since 2018 and this is her second marriage. Her was diagnosed with prostate cancer in 2019. 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 - Past Family History Father Family Medical History: Coronary Artery Disease (CAD), Hypertension Additional Family Medical History / Comment(s): passed from cardiac related issue Mother Family Medical History: Diabetes Mellitus Additional Family Medical History / Comment(s): PCOS and osteoporosis., MVP, aortic stenosis Brother(s) Family Medical History: Diabetes Mellitus, Hypertension, Myocardial Infarction ([place]) Sister(s) Family Medical History: CVA/TIA Additional Family Medical History / Comment(s): possible TIA Medications and Allergies Home Medications Medication Instructions Recorded Confirmed Type Topiramate [Topamax] 25 mg PO DAILY 09/10/18 12/12/22 History Irbesartan [Avapro] 150 mg PO HS 10/05/20 12/12/22 History Calcium Carbonate/Vitamin D3 500 mg PO DAILY 12/06/21 12/12/22 History [Calcium 500 mg Chewable Tablet] Cholecalciferol [Vitamin D3 (10 25 mcg PO DAILY 12/06/21 12/12/22 History Mcg = 400 Iu)] Multivitamin [Multivitamins Adult 1 tablet PO DAILY 12/12/22 12/12/22 History Gummies] Allergies Allergy/AdvReac Type Severity Reaction Status Date / Time amoxicillin [From Augmentin] Allergy Rash/Hives Verified 12/12/22 10:55 clavulanic acid Allergy Rash/Hives Verified 12/12/22 10:55 [From Augmentin] Exam Vital Signs Temp Pulse Resp BP Pulse Ox 12/12/22 11:07 97.9 F 66 17 124/83 99 Intake and Output 12/11/22 12/12/22 12/12/22 22:59 06:59 14:59 Other: Weight 69.4 kg Height 5 feet 5 inches, weight 153 pounds, BMI 25.5. This is a well-developed well-nourished white female who is alert and oriented times 3 in no acute distress. HEENT: Within normal limits. NECK: Supple without mass or thyromegaly. CHEST AND LUNGS: Clear to auscultation. HEART: Regular rate and rhythm. BREASTS: Are without mass or discharge. AXILLARY EXAM: Negative for adenopathy. BACK: Negative for CVA tenderness. ABDOMEN: Soft, nontender, without palpable masses. PELVIC EXAM: Normal external genitalia with mild atrophy. Cervix and vagina appear normal is mild atrophy. There is no unusual discharge. There is no evidence of prolapse. The uterus is midposition, nongravid size and nontender. There are no palpable adnexal masses or tenderness. RECTAL EXAM: Rectovaginal exam is negative for mass or tenderness and is negative for occult blood. EXTREMITIES: Nontender. IMPRESSION: 1. 57-year-old menopausal female with normal gynecologic exam. 2. Mild vasomotor symptoms associated with perimenopausal change. 3. History of osteopenia. PLAN: 1. Pap smear was deferred since she had a negative Pap smear cotest on 10/05/2020. 2. Self breast awareness was discussed with the patient. We have also discussed symptoms associated with inflammatory breast cancer. 3. Screening mammogram will be done today. 4. Osteoporosis prevention was discussed. I have stressed the importance of adequate calcium, vitamin D and regular exercise. Recommended amounts of calcium and vitamin D were also discussed. We will plan on repeating the bone density test in 1 year. 5. She is due for another colonoscopy and she will arrange this through her PCP. 6. She is slightly concerned regarding some weight gain over the last couple of years. I have stressed the importance of regular meals, adequate fiber and regular activity. 7. She was advised to return in one year for her annual well woman exam.
--- NOTE | 2022-12-12 12:45 | MM ---
Reason for Exam: Screening (asymptomatic). Last screening mammogram was performed 12 month(s) ago. Patient History: Menarche at age 14. Patient has no children. Postmenopausal. Risk Values: Chrissy 5 year model risk: 1.4%. NCI Lifetime model risk: 8.9%. Prior Study Comparison: 09/10/2018 Bilateral Screening Mammogram, [facility]. 10/05/2020 Bilateral Screening Mammogram, [facility]. 12/06/2021 Bilateral Screening Mammogram, [facility]. Tissue Density: The breast tissue is heterogeneously dense. This may lower the sensitivity of mammography. Findings: Analyzed By CAD. There is no suspicious group of microcalcifications or new suspicious mass in either breast. Overall Assessment: Negative, BI-RAD 1 Management: Screening Mammogram of both breasts in 1 year. A clinical breast exam by your physician is recommended on an annual basis and results should be correlated with mammographic findings. [facility] will attempt to contact patient to return for supplemental views and ultrasound if indicated. Electronically signed and approved by: Mathew Doty DO
== END ==
LOC: WWCWWP 10:28
PROVIDERS: ATTEND Obstetrics & Gynecology
DX: Z12.31 Encounter for screening mammogram for malignant neoplasm of breast (principal); I10 Essential (primary) hypertension; M85.80 Other specified disorders of bone density and structure, unspecified site; Z78.0 Asymptomatic menopausal state; Z01.419 Encounter for gynecological examination (general) (routine) without abnormal findings; Z82.3 Family history of stroke; N95.8 Other specified menopausal and perimenopausal disorders; Z82.49 Family history of ischemic heart disease and other diseases of the circulatory system; Z82.62 Family history of osteoporosis; Z83.3 Family history of diabetes mellitus; Z87.19 Personal history of other diseases of the digestive system; Z88.0 Allergy status to penicillin; Z88.1 Allergy status to other antibiotic agents; Z87.39 Personal history of other diseases of the musculoskeletal system and connective tissue
CPT/HCPCS: 77063; 77067

== ENCOUNTER → 2023-02-27 | Outpatient (CLI) | payer BC ==
--- NOTE | 2023-03-01 12:12 | MR ---
EXAMINATION TYPE: MR wrist RT wo con DATE OF EXAM: 02/27/2023 7:21 AM CLINICAL INDICATION:Female, 57 years old with history of M65.4; , Right wrist pain, lateral aspect. COMPARISON: None TECHNIQUE: T1 axial, proton density axial fat sat, T1 coronal, T2 coronal thin slice 3-D gradient rec alled echo, T1 sagittal, T2 inversion recovery coronal and proton density fat sat coronal were perfor med. No Gadolinium given. IV Contrast: (None if empty) FINDINGS: Joint spaces and alignment: Normal Joint/bursal fluid: Normal Articular cartilage: Normal Flexor retinaculum: Intact Median nerve: Intact Flexor tendons: Intact Extensor tendons: Intact Abductors/adductor tendons: There is increased PD signal surrounding the extensor pollicis brevis and the abductor pollicis longus tendon sheath. A small amount of fluid within the sheath. Series 701 im age 16. Intrinsic carpal ligaments: Intact Extrinsic carpal ligaments: Intact Triangular fibrocartilage complex: Intact Neurovascular structures: Normal Marrow: Mild bony edema involving the distal radius styloid process near the area of increased signal involving the dorsal first compartment. Soft tissues: Normal IMPRESSION: Mild bony edema of the radial styloid process with some edema surrounding the first dorsal compartmen t medially adjacent correlate for history of trauma, consider De Quervain tenosynovitis.
== END | disposition home or self-care (01) ==
LOC: RADMRIMAIN 06:19
PROVIDERS: ATTEND Family Medicine
DX: M65.4 Radial styloid tenosynovitis [de Quervain] (principal); M25.531 Pain in right wrist; R60.0 Localized edema

== ENCOUNTER → 2024-01-22 | Outpatient (CLI) | payer BC ==
[2024-01-22 12:32] VITALS: BP 123/81; PULSE 66; RESP 16; TEMP 98.3
--- NOTE | 2024-01-22 12:38 | P.HPOB ---
History of Present Illness H&P Date: 01/22/24 Chief Complaint: The patient is here for her routine gynecologic exam and ma mmogram. This is a 58-year-old G0 with an LMP of 2020. Patient is without gynecologic complaints and denies any postmenopausal bleeding. Review of Systems The patient's weight has been stable over the last year. She denies respiratory, cardiac, or G.I. problems. Past Medical History Past Medical History: Hypertension Additional Past Medical History / Comment(s): Mild gastritis, migraines. PAST [employer] HISTORY: She has no history of STDs. She has a history of infertility. History of Any Multi-Drug Resistant Organisms: None Reported Additional Past Surgical History / Comment(s): x2 laparoscopy. Upper endoscopy 2009. Colonoscopy 2018(-next 5yrs). lasik. Benign skin biopsies. Past Anesthesia/Blood Transfusion Reactions: Postoperative Nausea & Vomiting (PONV) Past Psychological History: No Psychological Hx Reported Smoking Status: Never smoker Past Alcohol Use History: Occasional (2 drinks per month.) Past Drug Use History: None Reported Additional History: She has been since 2017 and this is her second marriage. Her was diagnosed with prostate cancer in 2019. 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 - Past Family History Father Family Medical History: Coronary Artery Disease (CAD), Hypertension Additional Family Medical History / Comment(s): passed from cardiac related issue Mother Family Medical History: CVA/TIA, Diabetes Mellitus Additional Family Medical History / Comment(s): . PCOS and osteoporosis., MVP, aortic stenosis Brother(s) Family Medical History: Diabetes Mellitus, Hypertension, Myocardial Infarction ([place]) Sister(s) Family Medical History: CVA/TIA Additional Family Medical History / Comment(s): possible TIA Medications and Allergies Home Medications Medication Instructions Recorded Confirmed Type Topiramate [Topamax] 25 mg PO DAILY 09/10/18 01/22/24 History Irbesartan [Avapro] 150 mg PO HS 10/05/20 01/22/24 History Calcium Carbonate/Vitamin D3 500 mg PO DAILY 12/06/21 01/22/24 History [Calcium 500 mg Chewable Tablet] Cholecalciferol [Vitamin D3 (10 25 mcg PO DAILY 12/06/21 01/22/24 History Mcg = 400 Iu)] Multivitamin [Multivitamins Adult 1 tablet PO DAILY 12/12/22 01/22/24 History Gummies] Allergies Allergy/AdvReac Type Severity Reaction Status Date / Time amoxicillin [From Augmentin] Allergy Rash/Hives Verified 01/22/24 11:52 clavulanic acid Allergy Rash/Hives Verified 01/22/24 11:52 [From Augmentin] Exam Vital Signs Temp Pulse Resp BP Pulse Ox 01/22/24 11:52 98.3 F 66 16 123/81 99 Intake and Output 01/21/24 01/22/24 01/22/24 22:59 06:59 14:59 Other: Weight 69.853 kg Height 5 feet 4 inches, weight 154 pounds, BMI 26.4. This is a well-developed well-nourished white female who is alert and oriented times 3 in no acute distress. HEENT: Within normal limits. NECK: Supple without mass or thyromegaly. CHEST AND LUNGS: Clear to auscultation. HEART: Regular rate and rhythm. BREASTS: Are without mass or discharge. AXILLARY EXAM: Negative for adenopathy. BACK: Negative for CVA tenderness. ABDOMEN: Soft, nontender, without palpable masses. PELVIC EXAM: Normal external genitalia with mild atrophy. Cervix and vagina appear normal with mild atrophy. There is no unusual discharge. There is no evidence of prolapse. The uterus is midposition, nongravid size and nontender. There are no palpable adnexal masses or tenderness. RECTAL EXAM: Rectovaginal exam is negative for mass or tenderness and is negative for occult blood. EXTREMITIES: Nontender. IMPRESSION: 1. 58-year-old menopausal female with normal gynecologic exam. 2. History of osteopenia. PLAN: 1. Pap smear was deferred since she had a negative Pap smear cotest on 10/05/2020 2. Self breast awareness was discussed with the patient. We have also discussed symptoms associated with inflammatory breast cancer. 3. Screening mammogram was done today. 4. Osteoporosis prevention was discussed. We will plan on doing another bone density test in the upcoming year and the order slip was given to the patient for this. Her last one was on 10/05/2020. 5. She was advised to return in one year for her annual well woman exam.
--- NOTE | 2024-01-24 10:58 | MM ---
Reason for Exam: Screening (asymptomatic). Last mammogram was performed 1 year(s) and 1 month(s) ago. Patient History: Menarche at age 14. Patient has no children. Postmenopausal. Risk Values: Chrissy 5 year model risk: 1.4%. NCI Lifetime model risk: 8.7%. Prior Study Comparison: 10/05/2020 Bilateral Screening Mammogram, [facility]. 12/06/2021 Bilateral Screening Mammogram, [facility]. 12/12/2022 Bilateral MG 3D screening mammo w/cad, [facility]. Tissue Density: The breasts are heterogeneously dense, which may obscure small masses. Findings: Analyzed By CAD. Right breast: There is no suspicious group of microcalcifications or new suspicious mass. Left breast: There is no suspicious group of microcalcifications or new suspicious mass. Overall Assessment: Negative, BI-RAD 1 Management: Screening Mammogram of both breasts in [address] [facility] will attempt to contact patient to return for supplemental views and ultrasound if indicated. Patient should continue monthly self-breast exams. A clinical breast exam by your physician is recommended on an annual basis. This exam should not preclude additional follow-up of suspicious palpable abnormalities. Note on Chrissy scores and lifetime risk: 1. A Chrissy score greater than 3% is considered moderate risk. If this is the case, consider specialist referral to assess eligibility for a risk reducing agent. 2. If overall lifetime risk for the development of breast cancer is 20% or higher, the patient may qualify for future screening with alternating mammogram and breast MRI. Electronically signed and approved by: Mathew Doty DO
== END ==
LOC: WWCWWP 10:44
PROVIDERS: ATTEND Obstetrics & Gynecology
DX: Z12.31 Encounter for screening mammogram for malignant neoplasm of breast (principal); Z78.0 Asymptomatic menopausal state; Z87.39 Personal history of other diseases of the musculoskeletal system and connective tissue; Z88.0 Allergy status to penicillin; Z88.8 Allergy status to other drugs, medicaments and biological substances
CPT/HCPCS: 77063; 77067